=== PATIENT | male | born 1965 | race Hispanic/Latino ===

== ENCOUNTER 2020-09-25 15:16 | Observation (INO) | payer MEDICARE ==
[~2020-09-25] VITALS: Ht 172.7 cm; Wt 116.1 kg
[2020-09-25 16:23] LABS: BASOPHILS # (AUTO) 0.1 (0.0-0.1); BASOPHILS % 0.5 % (0.0-1.0); EOSINOPHILS # (AUTO) 0.2 (0.0-0.4); EOSINOPHILS % 1.8 % (0.0-6.0); HEMOGLOBIN 13.1 g/dL (14.0-18.0); LYMPHOCYTES # (AUTO) 1.4 (1.0-3.2); LYMPHOCYTES % 13.4 % (18.0-39.1); MEAN CORPUSCULAR HGB CONC 32.8 g/dL (31-35); MEAN CORPUSCULAR VOLUME 88.5 fL (81-99); MONOCYTES % 9.5 % (4.4-11.3); NEUTROPHILS # (AUTO) 7.6 (2.1-6.9); NEUTROPHILS % 74.3 % (38.7-80.0); PLATELET COUNT 246 x10e3/uL (140-360); RED BLOOD COUNT 4.52 x10e6/uL (4.3-5.7)
[2020-09-25 16:40] LABS: ANION GAP 17.3 mmol/L (8-16); CALCIUM 8.7 mg/dL (8.4-10.2); CREATININE, SERUM 4.35 mg/dL (0.72-1.25); POTASSIUM 4.3 mmol/L (3.5-5.1)
[2020-09-25] MEDS ORDERED: SODIUM CHLORIDE 0.9% 1000ML 1,000 ML IV SCH (17:00)
[2020-09-25] MEDS: SODIUM CHLORIDE 0.9% 1000ML 1,000 ML IV SCH ×2 (17:15→22:03)
[2020-09-25] MEDS ORDERED: ATORVASTATIN CA20 MG (17:32)
[2020-09-25] MEDS ORDERED: GABAPENTIN300 MG (17:32)
[2020-09-25] MEDS ORDERED: CLINDAMYCIN HC300 MG (17:32)
[2020-09-25] MEDS ORDERED: LEVOTHYROXINE100 MCG (17:32)
[2020-09-25] MEDS ORDERED: OLMESARTAN MEDO40 MG (17:32)
[2020-09-25] MEDS ORDERED: MUPIROCIN22 GM (17:32)
[2020-09-25] MEDS ORDERED: SILDENAFIL CIT100 MG (17:32)
[2020-09-25] MEDS ORDERED: AMOX TR-K CLV1 EAC2 (17:32)
[2020-09-25 21:45] VITALS: BP 135/74
[2020-09-25 21:55] VITALS: BP 135/74
[2020-09-25 22:01] VITALS: BP 135/74
[2020-09-25] MEDS ORDERED: MUPIROCIN22 GM TOP (23:44)
[2020-09-26 00:26] VITALS: BP 111/58
[2020-09-26 05:39] VITALS: BP 119/55
[2020-09-26 05:51] LABS: BASOPHILS % 0.5 % (0.0-1.0); EOSINOPHILS # (AUTO) 0.3 (0.0-0.4); EOSINOPHILS % 3.8 % (0.0-6.0); HEMOGLOBIN 12.5 g/dL (14.0-18.0); LYMPHOCYTES # (AUTO) 1.5 (1.0-3.2); LYMPHOCYTES % 23.3 % (18.0-39.1); MEAN CORPUSCULAR HEMOGLOBIN 29.1 pg (28-32); MEAN CORPUSCULAR HGB CONC 32.9 g/dL (31-35); MEAN CORPUSCULAR VOLUME 88.6 fL (81-99); MONOCYTES # (AUTO) 0.7 (0.2-0.8); MONOCYTES % 10.6 % (4.4-11.3); NEUTROPHILS % 61.5 % (38.7-80.0); PLATELET COUNT 212 x10e3/uL (140-360); RED BLOOD COUNT 4.29 x10e6/uL (4.3-5.7); RED CELL DISTRIBUTION WIDTH 13.9 % (11.7-14.4)
[2020-09-26] MEDS: SODIUM CHLORIDE 0.9% 1000ML 1,000 ML IV SCH (05:56)
[2020-09-26 06:13] LABS: CALCIUM 7.9 mg/dL (8.4-10.2); CREATININE, SERUM 1.93 mg/dL (0.72-1.25)
[2020-09-26 06:55] LABS: THYROID STIMULATING HORMONE 0.629 uIU/mL (0.350-4.940)
[2020-09-26 06:56] LABS: CHOL/HDL RATIO 6.3 (3.9-4.7); MAGNESIUM 2.2 MG/DL (1.3-2.1); PHOSPHORUS 3.9 MG/DL (2.3-4.7)
[2020-09-26 08:09] VITALS: BP 126/76
[2020-09-26 08:15] VITALS: BP 126/76
[2020-09-26 12:26] VITALS: BP 108/77
[2020-09-26] MEDS ORDERED: AMOXICILLIN/CLAVULANATE K 875 MG TAB PO SCH (14:03)
[2020-09-26 14:36] LABS: ANION GAP 12.6 mmol/L (8-16); CREATININE, SERUM 1.5 mg/dL (0.72-1.25); POTASSIUM 4.6 mmol/L (3.5-5.1)
[2020-09-26 16:29] VITALS: BP 141/93
== END 2020-09-26 18:41 | disposition home or self-care (01) ==
LOC: ER 15:24 → ERHOLD 17:25 → INTOOBSV 17:25 → MED/SURG 21:56
PROVIDERS: ADMIT Internal Medicine; ATTEND Internal Medicine
DX: N17.9 Acute kidney failure, unspecified (principal); M62.82 Rhabdomyolysis; E86.0 Dehydration; Z20.822 Contact with and (suspected) exposure to COVID-19
CPT/HCPCS: 36415; 71045; 76770; 80048; 80061; 82550; 83036; 83735; 83880; 84100; 84443; 84484; 85025; 93005; 99284; G0378; J7030; U0002